=== PATIENT | male | born 1955 | race Caucasian/White ===

== ENCOUNTER 2017-06-06 16:45 | Emergency (ER) | payer OTHER ==
[2017-06-06 17:03] VITALS: BP 145/76
== END 2017-06-06 18:12 | disposition left against medical advice (07) ==
LOC: ED 16:45
DX: R11.10 Vomiting, unspecified (principal); R50.9 Fever, unspecified; Z53.21 Procedure and treatment not carried out due to patient leaving prior to being seen by health care provider

== ENCOUNTER 2018-01-01 07:26 | Emergency (ER) | payer OTHER ==
[2018-01-01] MEDS ORDERED: Clindamycin 900 MG IVPREMIX(* 900 MG/50 ML SDV IV ONE (07:46)
--- NOTE | 2018-01-01 07:58 | ED ---
Skin Complaint - HPI Summary HPI Summary: Patient is a 62-year-old female who presents emergency department for a wound to his right lower ankle. Patient states wound started about 3-4 days ago. He states he applied bacitracin to wound last night when he woke up this morning he was red. Patient is an insulin-dependent diabetic. Patient states he had a fever last evening around 100F. He otherwise denies vomiting, recent illness, chest pain, shortness of breath, abdominal pain, diarrhea. Symptoms are moderate in severity. No current undefined factors. - History of Current Complaint Chief Complaint: EDGeneral Time Seen by Provider: 01/01/18 07:33 Stated Complaint: RASH ON RT LEG Hx Obtained From: Patient Pain Intensity: 2 - Allergy/Home Medications Allergies/Adverse Reactions: Allergies Allergy/AdvReac Type Severity Reaction Status Date / Time No Known Allergies Allergy Verified 01/01/18 07:31 Home Medications: Home Medications Aspirin [Aspirin EC] 81 mg PO DAILY 01/01/18 [History Confirmed 01/01/18] Atorvastatin* [Lipitor*] 80 mg PO QPM 01/01/18 [History Confirmed 01/01/18] Carvedilol TAB* [Coreg TAB*] 25 mg PO DAILY 01/01/18 [History Confirmed 01/01/18 ] Insulin Glargine,Hum.rec.anlog [Basaglar Kwikpen U-100] 25 units SQ QID [History Confirmed 01/01/18] PMH/Surg Hx/FS Hx/Imm Hx Previously Healthy: Yes Endocrine/Hematology History: Reports: Hx Diabetes - NEWLY DIAGNOSED Denies: Hx Anticoagulant Therapy, Hx Blood Disorders, Hx Blood Transfusions, Hx Bone Marrow Disease, Hx Systemic Lupus Erythematosus, Hx Sickle Cell Disease , Hx Thyroid Disease, Hx Anemia, Hx Unexplained Bleeding, Other Endocrine/ Hematological Disorders Cardiovascular History: Reports: Hx Congestive Heart Failure, Hx Hypertension - W/MEDS, Other Cardiovascular Problems/Disorders - IDDM II - Surgical History Surgery Procedure, Year, and Place: chest tube Infectious Disease History: No Infectious Disease History: Denies: Hx Clostridium Difficile, Hx Hepatitis, Hx Human Immunodeficiency Virus (HIV), Hx of Known/Suspected MRSA, Hx Shingles, Hx Tuberculosis, Hx Known/ Suspected VRE, Hx Known/Suspected VRSA, Traveled Outside the [place] in Last 30 Days - Social History Occupation: Works From/At Home Lives: With Family Alcohol Use: Rare Substance Use Type: Reports: None Hx Tobacco Use: Yes Smoking Status (MU): Former Smoker Type: Cigarettes Have You Smoked in the Last Year: No Review of Systems Positive: Fever Cardiovascular: Negative Respiratory: Negative Gastrointestinal: Negative Positive: Other - Wound and redness to right lower leg Positive: Other - Wound to right lower leg Neurological: Negative All Other Systems Reviewed And Are Negative: Yes Physical Exam Triage Information Reviewed: Yes Vital Signs On Initial Exam: Initial Vitals Temp Pulse Resp BP Pulse Ox 97.7 F 80 20 185/97 99 01/01/18 07:28 01/01/18 07:28 01/01/18 07:28 01/01/18 07:28 01/01/18 07:28 Vital Signs Reviewed: Yes Appearance: Positive: Well-Appearing - Patient sitting on the side of the bed in no acute distress. Skin: Positive: Warm, Dry Head/Face: Positive: Normal Head/Face Inspection Eyes: Positive: Normal Neck: Positive: Supple Respiratory/Lung Sounds: Positive: Clear to Auscultation, Breath Sounds Present Cardiovascular: Positive: Normal, RRR Musculoskeletal: Positive: Other - Large area of ulceration noted to the right distal lower extremity medially with surrounding erythema. Yellowish seepage. No calf pain or swelling. Poor peripheral perfusion. Wound culture obtained. Neurological: Positive: Normal, CN Intact II-III Psychiatric: Positive: Affect/Mood Appropriate Diagnostics - Vital Signs Vital Signs Temp Pulse Resp BP Pulse Ox 01/01/18 07:28 97.7 F 80 20 185/97 99 - Laboratory Lab Statement: Any lab studies that have been ordered have been reviewed, and results considered in the medical decision making process. Course/Dx - Course Course Of Treatment: Patient is a diabetic presenting to the ER for a wound and cellulitis to right lower extremity. He's had reported fevers at home. He is afebrile here with stable vital signs. Initially discussed with patient he will need to be admitted for IV antibiotic given extent of infection, DM, and poor perfusion. Pt. states he does not want to be admitted. 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 Explained to pt. if infection would to get worse it could spread to his bone or blood and cause loss of limb or even . Pt. expresses understanding and still wishes to go home. Pt. has decision making capacity. Pt. examined by Dr. Denis as well. He recommends not obtaining workup and just given IV antibx since pt. declines admission. Pt. was given a dose of IV clindamycin. He will sign out AMA. To call PCP tomorrow for an apt. in1-2 days. Clinda rx. To return to ER if sxs change or worsen. Assessment/Plan: Dr. Denis: I supervised the care of the physician patient observation assistant and I performed a history and physical on this patient. Hx: Pringle who developed a rash that is leaking yellow fluid from the right ankle. No fever. Physical exam: Open wound on the left medial ankle/lower leg with deep erythema , readiness, no purulent discharge. Surrounding cellulitis. Plan: Patient refuses to be admitted. He has no fever. IV antibiotic dose here and will be continued outpatient with close primary care follow-up. - Differential Diagnoses - Skin Complaint Differential Diagnoses: Abscess, Cellulitis, Systemic Illness - Diagnoses Provider Diagnoses: Cellulitis, Wound cellulitis Discharge - Sign-Out/Discharge Documenting (check all that apply): Patient Departure - Discharge Plan Condition: Stable Disposition: AGAINST MEDICAL ADVICE Prescriptions: Clindamycin Cap(NF) [Clindamycin Cap 300 mg Cap(NF)] 300 mg PO Q6H #40 cap Patient Education Materials: Cellulitis (ED) Referrals: Gregory Vivas MD [Primary Care Provider] - Additional Instructions: It was advised that you be admitted to the hospital for IV antibiotics for infection to your right lower leg Leg infection can lead to loss of leg or even You are signing out of the ER against medical advise Take antibiotic as directed Call your PCP tomorrow morning for an appointment in 1-2 days Return to ER if symptoms change or worsen - Billing Disposition and Condition Condition: STABLE Disposition: Against Medical Advice
[2018-01-01 08:57] VITALS: BP 148/89
== END 2018-01-01 08:54 | disposition left against medical advice (07) ==
LOC: ED 07:26
DX: L03.115 Cellulitis of right lower limb (principal); E11.8 Type 2 diabetes mellitus with unspecified complications; I50.9 Heart failure, unspecified; I10 Essential (primary) hypertension
CPT/HCPCS: 87070; 87205; 87640; 87641; 96374; 99282

== ENCOUNTER 2021-06-03 11:23 | Inpatient (IN) ==
[2021-06-03] MEDS ORDERED: Furosemide 40 mg/4 ml IV VIAL IV ONE (16:16)
[2021-06-03 17:42] LABS: ABS Basophils 0.1 10^3/ul (0-0.2); ABS Eosinophils 0.3 10^3/ul (0-0.6); ABS Lymphocytes 1.1 10^3/ul (1.0-4.8); ABS Monocytes 0.8 10^3/ul (0-0.8); ABS Neutrophils 7.6 10^3/ul (1.5-7.7); Eosinophil % 2.7 %; Hematocrit 25 % (42-52); Hemoglobin 8.2 g/dL (14.0-18.0); Lymphocyte % 11.1 %; Mean Corpuscular HGB Conc 33 g/dL (31-36); Mean Corpuscular Hemoglobin 30 pg (27-31); Mean Corpuscular Volume 92 fL (80-94); Platelet Count 177 10^3/uL (150-450); Red Blood Count 2.75 10^6 /uL (4.18-5.48); Red Cell Distribution Width 16 % (10-15); White Blood Count 9.8 10^3/uL (3.5-10.8)
[2021-06-03 17:57] LABS: ALT 27 U/L (7-52); AST 16 U/L (13-39); Albumin/Globulin Ratio 1.1 (1-3); Alkaline Phosphatase 74 U/L (35-149); Blood Urea Nitrogen 77 mg/dL (6-24); CO2 Carbon Dioxide 17 mmol/L (22-32); Calcium 7.6 mg/dL (8.6-10.3); Globulin 2.7 g/dL (2-4); Glucose 144 mg/dL (70-100); Potassium 4.6 mmol/L (3.5-5.0); Sodium 140 mmol/L (135-145); Total Protein 5.7 g/dL (6.4-8.9); eGFR CKD-EPI 8.6 (>60)
[2021-06-03 17:58] LABS: Anion Gap 10 mmol/L (2-11); Chloride 113 mmol/L (101-111)
[2021-06-03 17:59] LABS: Troponin I 0.03 ng/mL (<0.03)
[2021-06-03] MEDS ORDERED: Bumetanide IV 0.25 MG/ML 4 ml VIAL (1 mg) SLOW PUSH ONE (18:21)
[2021-06-03 19:16] LABS: Venous Bicarbonate HCO3 17.2 mmol/L (24-28)
[2021-06-03 19:40] LABS: Urine Appearance Clear; Urine Bilirubin Negative (Negative); Urine Blood 1+ (Negative); Urine Color Yellow; Urine Glucose 3+(>=500 mg/dL) (Negative); Urine Ketones Negative (Negative); Urine Nitrite Negative (Negative); Urine Protein 3+(>=500 mg/dL) (Negative); Urine Specific Gravity 1.013 (1.002-1.030); Urine Urobilinogen Negative (Negative)
[2021-06-03 19:43] LABS: Urine Amorphous Crystals Present (Absent); Urine Bacteria Absent (Absent); Urine Red Blood Cell Trace(0-2/hpf) (Absent); Urine Squamous Epithelial Cell Present (Absent); Urine White Blood Cell Trace(0-5/hpf) (Absent)
[2021-06-03 21:11] LABS: Troponin I 0.04 ng/mL (<0.03)
[2021-06-03 22:48] LABS: TSH Ultra Thyroid Stim Horm 18.14 mcIU/mL (0.34-5.60)
[2021-06-03 22:55] LABS: Ferritin 137.7 ng/mL (24-336)
[2021-06-03 22:59] LABS: Folate 7.16 ng/mL (5.90-24.80)
[2021-06-03 23:00] LABS: Vitamin B12 671 pg/mL (180-914)
[2021-06-03] MEDS ORDERED: Magnesium Hydroxide LIQ 30 ML UDC PO PRN (23:15)
[2021-06-03] MEDS ORDERED: Senna TAB 8.6 mg TAB PO PRN (23:21)
[2021-06-03] MEDS ORDERED: Dextrose 50% Syringe 50 ml 25 GM/50 ML SYRINGE IV PUSH PRN (23:30)
[2021-06-04] MEDS ORDERED: Insulin GLARGINE 100 un/ml 10 ml VIAL SUBCUT SCH (01:00)
[2021-06-04 01:07] LABS: Blood Urea Nitrogen 79 mg/dL (6-24); CO2 Carbon Dioxide 18 mmol/L (22-32); Calcium 7.6 mg/dL (8.6-10.3); Glucose 138 mg/dL (70-100); Magnesium 1.7 mg/dL (1.9-2.7); Phosphorus 8.6 mg/dL (2.5-5.0); Potassium 4.4 mmol/L (3.5-5.0); Sodium 141 mmol/L (135-145); eGFR CKD-EPI 8.6 (>60)
[2021-06-04 01:11] LABS: Free T4 0.68 ng/dL (0.61-1.12)
[2021-06-04 01:13] LABS: Anion Gap 10 mmol/L (2-11); Chloride 113 mmol/L (101-111); Troponin I 0.07 ng/mL (<0.03)
[2021-06-04] MEDS: Heparin 5000 UNITS/ML 1 mL VIAL SUBCUT SCH ×3 (07:16→21:31)
[2021-06-04 07:17] LABS: Blood Urea Nitrogen 79 mg/dL (6-24); CO2 Carbon Dioxide 18 mmol/L (22-32); Calcium 7.6 mg/dL (8.6-10.3); Glucose 159 mg/dL (70-100); Potassium 4.4 mmol/L (3.5-5.0); Sodium 141 mmol/L (135-145); eGFR CKD-EPI 8.7 (>60)
[2021-06-04 07:18] LABS: Anion Gap 10 mmol/L (2-11); Chloride 113 mmol/L (101-111)
[2021-06-04 07:21] LABS: Troponin I 0.03 ng/mL (<0.03)
[2021-06-04 07:26] LABS: Urine Creatinine Concentration 59.15 mg/dL
[2021-06-04] MEDS: Aspirin EC 81 mg TAB.EC (enteric coated) PO SCH (08:46)
[2021-06-04] MEDS: Bumetanide IV 0.25 MG/ML 4 ml VIAL (1 mg) SLOW PUSH SCH ×2 (12:45→22:26)
[2021-06-04] MEDS ORDERED: Perflutren Lipid Microsphere 3 ML VIAL ONE (16:31)
[2021-06-05] MEDS: Heparin 5000 UNITS/ML 1 mL VIAL SUBCUT SCH ×2 (05:19→13:36)
[2021-06-05 06:11] LABS: Calcium 7.5 mg/dL (8.6-10.3); Magnesium 1.8 mg/dL (1.9-2.7); Phosphorus 8.4 mg/dL (2.5-5.0); Potassium 4.6 mmol/L (3.5-5.0); eGFR CKD-EPI 8.1 (>60)
[2021-06-05] MEDS: Aspirin EC 81 mg TAB.EC (enteric coated) PO SCH (08:57)
[2021-06-05] MEDS: Bumetanide IV 0.25 MG/ML 4 ml VIAL (1 mg) SLOW PUSH SCH (09:32)
[2021-06-05 14:02] LABS: % Iron Saturation 27 % (14 - 50); Total Iron Binding Capacity 207 mcg/dL (250 - 400)
[2021-06-05 15:52] VITALS: BP 151/74
== END 2021-06-05 15:35 | disposition home or self-care (01) | DRG 469 ==
LOC: ED 11:23 → MEDTELE 23:15 → SUATTDRO 23:15 → MEDTELE 06-04 01:57
PROVIDERS: ADMIT Internal Medicine; ATTEND Internal Medicine

== ENCOUNTER 2022-06-08 13:40 | Inpatient (IN) ==
[2022-06-08] MEDS ORDERED: Iodixanol (CONTRAST) 320 MG/ML 100 ML SDV IV ONE (14:35)
[2022-06-08 15:04] LABS: ABS Basophils 0.1 10^3/ul (0-0.2); ABS Eosinophils 0.2 10^3/ul (0-0.6); ABS Monocytes 0.5 10^3/ul (0-0.8); ABS Neutrophils 3.9 10^3/ul (1.5-7.7); Eosinophil % 3.5 %; Hematocrit 31 % (42-52); Hemoglobin 10.5 g/dL (14.0-18.0); Lymphocyte % 17.1 %; Mean Corpuscular HGB Conc 34 g/dL (31-36); Mean Corpuscular Hemoglobin 31 pg (27-31); Mean Corpuscular Volume 90 fL (80-94); Mean Platelet Volume 7.1 fL (7.4-10.4); Platelet Count 137 10^3/uL (150-450); Red Blood Count 3.44 10^6 /uL (4.18-5.48); Red Cell Distribution Width 15 % (10-15); White Blood Count 5.6 10^3/uL (3.5-10.8)
[2022-06-08 15:19] LABS: Activated Partial Thrombo Time 31.4 seconds (26.0-38.0); INR 1.24 (0.88-1.18)
[2022-06-08 15:49] LABS: Albumin 2.9 g/dL (3.2-5.2); Albumin/Globulin Ratio 1.3 (1-3); Calcium 7.8 mg/dL (8.6-10.3); Globulin 2.3 g/dL (2-4); HDL Cholesterol 31.7 mg/dL; Potassium 3.6 mmol/L (3.5-5.0); Total Bilirubin 0.7 mg/dL (0.2-1.0); Total Protein 5.2 g/dL (6.4-8.9); eGFR CKD-EPI 17.9 (>60)
[2022-06-08] MEDS ORDERED: NS 0.9% 1000 ml BAG 1,000 ML IV SCH (17:30)
[2022-06-08] MEDS ORDERED: Dextrose 50% Syringe 50 ml 25 GM/50 ML SYRINGE IV PUSH PRN (17:32)
[2022-06-09 06:55] LABS: ABS Eosinophils 0.2 10^3/ul (0-0.6); ABS Lymphocytes 0.8 10^3/ul (1.0-4.8); ABS Monocytes 0.4 10^3/ul (0-0.8); ABS Neutrophils 3.9 10^3/ul (1.5-7.7); Eosinophil % 3.9 %; Hematocrit 29 % (42-52); Lymphocyte % 14.3 %; Mean Corpuscular HGB Conc 35 g/dL (31-36); Mean Corpuscular Hemoglobin 31 pg (27-31); Mean Corpuscular Volume 90 fL (80-94); Mean Platelet Volume 7.3 fL (7.4-10.4); Platelet Count 122 10^3/uL (150-450); Red Blood Count 3.21 10^6 /uL (4.18-5.48); Red Cell Distribution Width 14 % (10-15); White Blood Count 5.4 10^3/uL (3.5-10.8)
[2022-06-09 07:37] LABS: CO2 Carbon Dioxide 26 mmol/L (22-32); Calcium 8.1 mg/dL (8.6-10.3); Chloride 102 mmol/L (101-111); Magnesium 1.9 mg/dL (1.9-2.7); Sodium 132 mmol/L (135-145)
[2022-06-09 07:38] LABS: Anion Gap 4 mmol/L (2-11)
[2022-06-09 07:43] LABS: Blood Urea Nitrogen 24 mg/dL (6-24); Glucose 119 mg/dL (70-100); eGFR CKD-EPI 16.5 (>60)
[2022-06-09] MEDS ORDERED: Aspirin EC 81 mg TAB.EC (enteric coated) PO SCH (09:00)
[2022-06-10 07:14] LABS: ABS Basophils 0.1 10^3/ul (0-0.2); ABS Eosinophils 0.2 10^3/ul (0-0.6); ABS Lymphocytes 0.9 10^3/ul (1.0-4.8); ABS Monocytes 0.5 10^3/ul (0-0.8); ABS Neutrophils 3.8 10^3/ul (1.5-7.7); Eosinophil % 4.4 %; Hematocrit 29 % (42-52); Hemoglobin 9.9 g/dL (14.0-18.0); Lymphocyte % 16.9 %; Mean Corpuscular HGB Conc 35 g/dL (31-36); Mean Corpuscular Hemoglobin 31 pg (27-31); Mean Corpuscular Volume 89 fL (80-94); Mean Platelet Volume 7.1 fL (7.4-10.4); Platelet Count 127 10^3/uL (150-450); Red Blood Count 3.21 10^6 /uL (4.18-5.48); Red Cell Distribution Width 14 % (10-15); White Blood Count 5.5 10^3/uL (3.5-10.8)
[2022-06-10 07:46] LABS: Calcium 8.1 mg/dL (8.6-10.3); Potassium 3.6 mmol/L (3.5-5.0); eGFR CKD-EPI 13.7 (>60)
[2022-06-10 09:24] LABS: Hepatitis B Surface Antigen Nonreactive (Nonreactive)
[2022-06-10 09:29] LABS: Hepatitis B Core IgM Nonreactive (Nonreactive)
[2022-06-10 09:41] LABS: Hepatitis B Surface Ab Not Immune (Immune)
[2022-06-11 07:10] LABS: Calcium 8.1 mg/dL (8.6-10.3); Magnesium 1.9 mg/dL (1.9-2.7); Potassium 4.1 mmol/L (3.5-5.0); eGFR CKD-EPI 18.8 (>60)
[2022-06-11 07:29] LABS: ABS Eosinophils 0.2 10^3/ul (0-0.6); ABS Lymphocytes 1.1 10^3/ul (1.0-4.8); ABS Monocytes 0.6 10^3/ul (0-0.8); ABS Neutrophils 3.4 10^3/ul (1.5-7.7); Eosinophil % 3.5 %; Hematocrit 30 % (42-52); Hemoglobin 10.2 g/dL (14.0-18.0); Lymphocyte % 20.6 %; Mean Corpuscular HGB Conc 35 g/dL (31-36); Mean Corpuscular Hemoglobin 31 pg (27-31); Mean Corpuscular Volume 90 fL (80-94); Mean Platelet Volume 8.1 fL (7.4-10.4); Platelet Count 121 10^3/uL (150-450); Red Blood Count 3.27 10^6 /uL (4.18-5.48); Red Cell Distribution Width 15 % (10-15); White Blood Count 5.3 10^3/uL (3.5-10.8)
[2022-06-12 10:25] LABS: Calcium 8.1 mg/dL (8.6-10.3); Magnesium 1.9 mg/dL (1.9-2.7); Potassium 4.1 mmol/L (3.5-5.0)
[2022-06-12] MEDS ORDERED: KCL 20 MEQ/100 ML IVPREMIX 20 MEQ/100 ML BAG IV ONE (12:45)
[2022-06-12] MEDS ORDERED: Magnesium Sulfate 2 gm BAG 2 GM/50 ML BAG IVPB ONE (12:45)
[2022-06-12] MEDS: Heparin 5000 UNITS/ML 1 mL VIAL SUBCUT SCH (16:14)
[2022-06-13] MEDS: Heparin 5000 UNITS/ML 1 mL VIAL SUBCUT SCH ×2 (06:23→16:54)
[2022-06-13 06:35] LABS: ABS Basophils 0.1 10^3/ul (0-0.2); ABS Eosinophils 0.4 10^3/ul (0-0.6); ABS Lymphocytes 1.2 10^3/ul (1.0-4.8); ABS Monocytes 0.6 10^3/ul (0-0.8); ABS Neutrophils 6.2 10^3/ul (1.5-7.7); Eosinophil % 4.3 %; Hematocrit 32 % (42-52); Lymphocyte % 14.3 %; Mean Corpuscular HGB Conc 34 g/dL (31-36); Mean Corpuscular Hemoglobin 31 pg (27-31); Mean Corpuscular Volume 90 fL (80-94); Mean Platelet Volume 7.4 fL (7.4-10.4); Platelet Count 140 10^3/uL (150-450); Red Blood Count 3.58 10^6 /uL (4.18-5.48); Red Cell Distribution Width 14 % (10-15); White Blood Count 8.4 10^3/uL (3.5-10.8)
[2022-06-13 07:09] LABS: Calcium 8.3 mg/dL (8.6-10.3); Potassium 4.3 mmol/L (3.5-5.0); eGFR CKD-EPI 16.6 (>60)
[2022-06-14] MEDS: Heparin 5000 UNITS/ML 1 mL VIAL SUBCUT SCH ×2 (05:35→18:59)
[2022-06-14 06:27] LABS: Calcium 8.5 mg/dL (8.6-10.3); Magnesium 2.5 mg/dL (1.9-2.7); Potassium 4.5 mmol/L (3.5-5.0); eGFR CKD-EPI 13.4 (>60)
[2022-06-15] MEDS: Heparin 5000 UNITS/ML 1 mL VIAL SUBCUT SCH ×2 (06:13→17:22)
[2022-06-15 06:56] LABS: Calcium 8.1 mg/dL (8.6-10.3); Potassium 4.4 mmol/L (3.5-5.0); eGFR CKD-EPI 11.5 (>60)
[2022-06-16] MEDS: Heparin 5000 UNITS/ML 1 mL VIAL SUBCUT SCH ×2 (05:07→17:07)
[2022-06-16 07:11] LABS: Calcium 8.2 mg/dL (8.6-10.3); Potassium 4.2 mmol/L (3.5-5.0)
[2022-06-17] MEDS: Heparin 5000 UNITS/ML 1 mL VIAL SUBCUT SCH ×2 (06:10→17:23)
[2022-06-17] MEDS ORDERED: Ondansetron 4 mg VIAL 2 MG/ML 2 ml VIAL IV ONE (08:39)
[2022-06-17 09:44] LABS: Calcium 8.2 mg/dL (8.6-10.3); Potassium 4.5 mmol/L (3.5-5.0); eGFR CKD-EPI 12.7 (>60)
[2022-06-17] MEDS ORDERED: Ondansetron 4 mg VIAL 2 MG/ML 2 ml VIAL IV PRN (13:56)
[2022-06-17] MEDS ORDERED: NS 0.9% 1000 ml BAG 100 ML IV PRN (19:09)
[2022-06-17] MEDS ORDERED: NS 0.9% 1000 ml BAG 200 ML IV PRN (19:09)
[2022-06-17] MEDS ORDERED: Albumin Human 25% 25 GM/100 ML BTL IV PRN (19:09)
[2022-06-18] MEDS: Heparin 5000 UNITS/ML 1 mL VIAL SUBCUT SCH ×2 (09:00→20:36)
[2022-06-19] MEDS: Heparin 5000 UNITS/ML 1 mL VIAL SUBCUT SCH ×2 (05:22→17:34)
[2022-06-19 06:59] LABS: Calcium 7.9 mg/dL (8.6-10.3); Potassium 4.5 mmol/L (3.5-5.0); eGFR CKD-EPI 22.6 (>60)
[2022-06-19 14:19] LABS: Ferritin 1000.8 ng/mL (24-336)
[2022-06-20] MEDS: Heparin 5000 UNITS/ML 1 mL VIAL SUBCUT SCH ×2 (05:00→18:12)
[2022-06-21] MEDS: Heparin 5000 UNITS/ML 1 mL VIAL SUBCUT SCH (05:26)
[2022-06-21 06:55] LABS: ABS Basophils 0.1 10^3/ul (0-0.2); ABS Eosinophils 0.2 10^3/ul (0-0.6); ABS Lymphocytes 1.2 10^3/ul (1.0-4.8); ABS Monocytes 0.7 10^3/ul (0-0.8); ABS Neutrophils 5.1 10^3/ul (1.5-7.7); Eosinophil % 3.1 %; Hematocrit 28 % (42-52); Hemoglobin 9.4 g/dL (14.0-18.0); Mean Corpuscular HGB Conc 33 g/dL (31-36); Mean Corpuscular Hemoglobin 31 pg (27-31); Mean Corpuscular Volume 91 fL (80-94); Mean Platelet Volume 7.2 fL (7.4-10.4); Platelet Count 120 10^3/uL (150-450); Red Blood Count 3.07 10^6 /uL (4.18-5.48); Red Cell Distribution Width 14 % (10-15); White Blood Count 7.3 10^3/uL (3.5-10.8)
[2022-06-21 07:14] LABS: Calcium 8.2 mg/dL (8.6-10.3); Magnesium 1.9 mg/dL (1.9-2.7); eGFR CKD-EPI 12.7 (>60)
[2022-06-21 07:31] LABS: Potassium 5.1 mmol/L (3.5-5.0)
[2022-06-21] MEDS: Heparin 1,000 UNIT/ML 10 ml (10,000 UNITS) CATHLAB/DIALYSIS DIALYSIS PRN ×3 (08:40→10:42)
[2022-06-21 13:02] VITALS: BP 122/71
== END 2022-06-21 13:45 | DRG 64 ==
LOC: ED 13:40 → EDHOLD 13:40 → MEDTELE 19:27 → SUATTDRO 06-09 15:39
PROVIDERS: ADMIT Internal Medicine; ATTEND Internal Medicine

== ENCOUNTER 2023-07-21 12:36 | Inpatient (IN) ==
[2023-07-21 15:21] LABS: Hematocrit 34.2 % (38-53); Hemoglobin 11.3 g/dL (13.2-16.3); Mean Corpuscular Hgb Conc 33.1 g/dL (31-36); Mean Corpuscular Volume 87.6 fL (80-97); Mean Platelet Volume 7.9 fL (7.5-11.2); Platelet Count 223 10^3/uL (150-450); Red Cell Distribution Width 16.4 % (12-17); White Blood Count 14.5 10^3/uL (3.6-10.2)
[2023-07-21] MEDS ORDERED: Lactated Ringers 1000 ml BAG 500 ML IV ONE (15:46)
[2023-07-21 16:15] LABS: ALT 14 U/L (7-52); Albumin 2.6 g/dL (3.2-5.2); Albumin/Globulin Ratio 0.7 (1-3); Alkaline Phosphatase 140 U/L (35-149); Anion Gap 8 mmol/L (2-16); Blood Urea Nitrogen 45 mg/dL (6-24); C Reactive Protein 54.18 mg/L (<8.01); CO2 Carbon Dioxide 30 mmol/L (22-32); Calcium 8.7 mg/dL (8.6-10.3); Chloride 92 mmol/L (101-111); Creatinine, Serum 2.58 mg/dL (0.67-1.17); Globulin 3.5 g/dL (2-4); Glucose 178 mg/dL (70-100); Sodium 130 mmol/L (135-145); Total Bilirubin 0.5 mg/dL (0.2-1.0); Total Protein 6.1 g/dL (6.4-8.9); eGFR CKD-EPI 26.6 (>60)
[2023-07-21 16:45] LABS: ABS Basophils 0.1 10^3/uL (0.0-0.1); ABS Eosinophils 0.1 10^3/uL (0.0-0.5); ABS Lymphocytes 1.7 10^3/uL (1.0-4.8); ABS Neutrophils 11.6 10^3/uL (1.5-7.6); Eosinophil % 0.5 %; Lymphocyte % 11.8 %; RBC Morphology Normal (Normal)
[2023-07-21] MEDS ORDERED: Vancomycin 1,000 MG in NS 0.9% 250 ml 250 ML IVPB ONE (17:00)
[2023-07-21 17:01] LABS: Potassium Redraw 3.5 mmol/L (3.5-5.0)
[2023-07-21 17:58] LABS: Urine Appearance Cloudy; Urine Bilirubin Negative (Negative); Urine Blood 1+ (Negative); Urine Color Yellow; Urine Glucose 1+(50 mg/dL) (Negative); Urine Ketones Negative (Negative); Urine Nitrite Negative (Negative); Urine Protein 3+(>=500 mg/dL) (Negative); Urine Specific Gravity 1.014 (1.002-1.030); Urine Urobilinogen Negative (Negative)
[2023-07-21 18:14] LABS: Budding Yeast Present (Absent); Urine Bacteria 2+ (Absent); Urine Red Blood Cell 3+(>10/hpf) (Absent); Urine Squamous Epithelial Cell Present (Absent); Urine White Blood Cell 3+(>20/hpf) (Absent); Urine Yeast Present (Absent)
[2023-07-21] MEDS ORDERED: Enoxaparin 40 MG/0.4 ML SYR SUBCUT SCH (20:00)
[2023-07-21 20:28] LABS: ABS Lymphocytes 1.1 10^3/uL (1.0-4.8); ABS Monocytes 0.7 10^3/uL (0.0-1.1); ABS Neutrophils 7.1 10^3/uL (1.5-7.6); Eosinophil % 0.5 %; Hematocrit 29.9 % (38-53); Lymphocyte % 12.1 %; Mean Corpuscular Hemoglobin 29.4 pg (27-33); Mean Corpuscular Hgb Conc 33.6 g/dL (31-36); Mean Corpuscular Volume 87.5 fL (80-97); Mean Platelet Volume 7.8 fL (7.5-11.2); Platelet Count 167 10^3/uL (150-450); Red Blood Count 3.42 10^6/uL (4.06-5.63); White Blood Count 8.9 10^3/uL (3.6-10.2)
[2023-07-21 20:40] LABS: Activated Partial Thrombo Time 29.2 seconds (26.0-38.0); INR 1.3 (0.83-1.13)
[2023-07-21 20:43] LABS: Creatinine, Serum 2.69 mg/dL (0.67-1.17); eGFR CKD-EPI 25.3 (>60)
[2023-07-21] MEDS ORDERED: NS 0.9% 1000 ml BAG 200 ML IV PRN (21:46)
[2023-07-21] MEDS ORDERED: NS 0.9% 1000 ml BAG 100 ML IV PRN (21:46)
[2023-07-21] MEDS ORDERED: Albumin Human 25% 25 GM/100 ML BTL IV PRN (21:46)
[2023-07-21] MEDS ORDERED: Dextrose 50% Syringe 50 ml 25 GM/50 ML SYRINGE IV PUSH PRN (21:52)
[2023-07-21] MEDS ORDERED: Lactated Ringers 1000 ml BAG 500 ML IV SCH (23:00)
[2023-07-21] MEDS: Heparin 5000 UNITS/ML 1 mL VIAL SUBCUT SCH (23:56)
[2023-07-22 01:04] LABS: Hepatitis B Surface Ab Not Immune (Immune)
[2023-07-22 06:19] LABS: ABS Eosinophils 0.1 10^3/uL (0.0-0.5); ABS Monocytes 0.7 10^3/uL (0.0-1.1); ABS Neutrophils 5.3 10^3/uL (1.5-7.6); Eosinophil % 1.4 %; Lymphocyte % 14.2 %; Mean Corpuscular Hemoglobin 29.3 pg (27-33); Mean Corpuscular Hgb Conc 33.4 g/dL (31-36); Mean Corpuscular Volume 87.9 fL (80-97); Mean Platelet Volume 7.6 fL (7.5-11.2); Platelet Count 158 10^3/uL (150-450); Red Blood Count 3.42 10^6/uL (4.06-5.63); Red Cell Distribution Width 16.3 % (12-17); White Blood Count 7.2 10^3/uL (3.6-10.2)
[2023-07-22 06:39] LABS: Calcium 8.3 mg/dL (8.6-10.3); Creatinine, Serum 2.76 mg/dL (0.67-1.17); Potassium 3.3 mmol/L (3.5-5.0); eGFR CKD-EPI 24.5 (>60)
[2023-07-22] MEDS: Heparin 1,000 UNIT/ML 10 ml (10,000 UNITS) CATHLAB/DIALYSIS DIALYSIS PRN ×3 (08:00→09:54)
[2023-07-22] MEDS ORDERED: Potassium Chlor 20 meq TAB.ER PO ONE (08:07)
[2023-07-22] MEDS ORDERED: Aspirin EC 81 mg TAB.EC (enteric coated) PO SCH (09:00)
[2023-07-22] MEDS ORDERED: cefTRIAXone 1 gm/50 mL D5W 1 GM/50 ML BAG IV SCH (11:00)
[2023-07-22 12:11] LABS: Hepatitis B Surface Antigen Nonreactive (Nonreactive)
[2023-07-22 13:58] VITALS: BP 96/64
[2023-07-22] MEDS: Heparin 5000 UNITS/ML 1 mL VIAL SUBCUT SCH (14:15)
[2023-07-23] MEDS ORDERED: Pentoxifylline CR 400 mg TAB 400 MG PO SCH (09:00)
== END 2023-07-22 18:01 | disposition home or self-care (01) | DRG 947 ==
LOC: ED 12:36 → SUATTDRO 19:46 → EDHOLD 19:46 → MED 21:39
PROVIDERS: ADMIT Internal Medicine; ATTEND Student in an Organized Health Care Education/Training Program